=== PATIENT | female | born 1945 | race Caucasian/White ===

== ENCOUNTER 2016-11-13 19:22 | Emergency (ER) | payer MEDICARE, MEDICAID ==
[2016-11-13 19:25] VITALS: BP 157/89; PULSE 89; RESP 16; TEMP 97.9; O2SAT 100
--- NOTE | 2016-11-13 20:17 | CT ---
EXAM: CT Head Without Intravenous Contrast CLINICAL HISTORY: 71 years old, female; Injury or trauma; Fall; Initial encounter; Concussion / head injury; Consciousness not specified; Injury details: Fell while walking with her walker TECHNIQUE: Axial computed tomography images of the head/brain without intravenous contrast. All CT scans at this facility use one or more dose reduction techniques, viz.: automated exposure control; ma/kV adjustment per patient size (including targeted exams where dose is matched to indication; i.e. head); or iterative reconstruction technique. Coronal and sagittal reformatted images were created and reviewed. COMPARISON: CT - HEAD W/O CONTRAST 11/06/2013 7:58:36 PM FINDINGS: Brain: Mild atrophy. No intracranial hemorrhage. No mass. No edema. Ventricles: No hydrocephalus. Bones/joints: No acute fracture. Soft tissues: Parietal soft tissue swelling. Vasculature: Minimal atherosclerotic disease of intracranial arteries. Sinuses: Moderate mucosal thickening/air fluid level of RIGHT maxillary sinus. Scattered minimal to mild mucosal thickening of remaining sinuses. Mastoid air cells: No mastoid effusion. Orbits: Unremarkable as visualized. IMPRESSION: 1. No intracranial hemorrhage. 2. Sinus disease.
--- NOTE | 2016-11-13 20:24 | CT ---
EXAM: CT Cervical Spine Without Intravenous Contrast CLINICAL HISTORY: 71 years old, female; Injury or trauma; Fall; Initial encounter; Concussion /head injury; Additional info: Neck pain head injury TECHNIQUE: Axial computed tomography images of the cervical spine without intravenous contrast. All CT scans at this facility use one or more dose reduction techniques, viz.: automated exposure control; ma/kV adjustment per patient size (including targeted exams where dose is matched to indication; i.e. head); or iterative reconstruction technique. Coronal and sagittal reformatted images were created and reviewed. COMPARISON: No relevant prior studies available. FINDINGS: Vertebrae: No acute fracture. Straightening of cervical spine. Degenerative retrolithesis of mid cervical spine. Mild facet osteoarthrosis within cervical spine. Discs/spinal canal/neural foramina: Mild degenerative disc disease within mid cervical spine. Severe degenerative disc disease within lower cervical spine. Disc herniation within lower cervical spine, suboptimally evaluated. Mild indentation thecal sac/cord lower cervical spine. Neuroforaminal narrowing within lower cervical spine. Soft tissues: Unremarkable. Sinuses: Scattered mucosal thickening of visualized sinuses. Lung apices: Unremarkable as visualized. IMPRESSION: 1. No fracture. 2. Incidental/non-acute findings are described above.
--- NOTE | 2016-11-13 20:49 | ED PDOC ---
HPI: Trauma/Fall - HPI Time Seen by Provider: 11/13/16 19:28 Chief Complaint (Nursing): Trauma Chief Complaint (Provider): Head injury History Per: Patient History/Exam Limitations: no limitations Onset/Duration Of Symptoms: Mins Injury Occurred (Timing): Just Before Arrival Location Of Injury: Posterior: Head Associated Symptoms: LOC Additional History Per: Patient Additional Complaint(s): The patient is a 71yo female, pmhx of hypertension, diabetes, arthritis, presents to the ED for evaluation of a head injury, sustained prior to arrival. Pt reports she uses a walker to walk and she tripped and fell backwards, injuring the back of her head. She does report loss of consciousness for a few seconds but denies any nausea or vomiting. She also reports pain in the back of her head, upper midline of her back, and her left shoulder. She denies any focal weakness, or vision changes. She reports taking aspirin daily but denies use of other blood thinners. She offers no other medical complaints. Past Medical History Reviewed: Historical Data, Nursing Documentation, Vital Signs Vital Signs: Last Vital Signs Temp 97.9 F 11/13/16 19:22 Pulse 89 11/13/16 19:22 Resp 16 11/13/16 19:22 BP 157/89 H 11/13/16 19:22 Pulse Ox 100 11/13/16 19:22 - Medical History PMH: Depression, Diabetes, HTN, Hypercholesterolemia, Hyperthyroidism - Surgical History Surgical History: Cholecystectomy, - Family History Family History: States: Unknown Family Hx - Social History Current smoker - smoking cessation education provided: No Alcohol: None Drugs: Denies - Home Medications Home Medications: Ambulatory Orders Medication Instructions Recorded Amoxicillin/Clavulanate [Augmentin 1 tab PO BID #14 tab 11/08/13 875 MG-125 MG] Ondansetron ODT [Zofran ODT] 4 mg PO TID PRN #15 odt 11/08/13 Naproxen 500 mg PO Q12 #20 tab 02/25/14 Aspirin [Aspirin] 81 mg PO DAILY 10/27/14 Bupropion HCl [Bupropion] 75 mg PO DAILY 10/27/14 Cephalexin [Keflex] 500 mg PO TID 10/27/14 Divalproex Sodium [Divalproex 125 mg PO DAILY 10/27/14 Sodium] Levothyroxine [Synthroid] 75 mcg PO DAILY 10/27/14 Lisinopril [Prinivil] 20 mg PO DAILY 10/27/14 Lisinopril/Hydrochlorothiazide 20 - 25 mg PO DAILY 10/27/14 [Lisinopril-Hydrochlorothiazide 25 mg-20 mg] Meclizine HCl [Meclizine] 25 mg PO DAILY 10/27/14 Memantine HCl [Namenda] 5 mg PO DAILY 10/27/14 Metformin HCl [Metformin] 1,000 mg PO DAILY 10/27/14 Multivit,Iron,Min 5/Folic Acid 1 tab PO DAILY 10/27/14 [Strovite Forte] [id number] Ethyl Esters [Lovaza] 1 gm PO DAILY 10/27/14 Omeprazole [Prilosec] 20 mg PO DAILY 10/27/14 Oxycodone HCl/Acetaminophen 5 - 325 mg PO Q4 PRN 10/27/14 [Percocet 325 mg-5 mg] Pantoprazole Sodium [Protonix] 40 mg PO DAILY 10/27/14 Quetiapine Fumarate [Seroquel] 50 mg PO DAILY 10/27/14 Simvastatin [Simvastatin] 20 mg PO DAILY 10/27/14 Vitamin D [Vitamin D] 2,000 iu PO DAILY 10/27/14 - Allergies Allergies/Adverse Reactions: Allergies Allergy/AdvReac Type Severity Reaction Status Date / Time No Known Allergies Allergy Verified 11/06/13 19:24 Review of Systems ROS Statement: Except As Marked, All Systems Reviewed And Found Negative Gastrointestinal: Negative for: Nausea, Vomiting Musculoskeletal: Positive for: Shoulder Pain (left), Back Pain (upper midline) Neurological: Positive for: Headache, Other (loss of consciousness) Physical Exam - Reviewed Nursing Documentation Reviewed: Yes Vital Signs Reviewed: Yes - Physical Exam Appears: Positive for: In Acute Distress (mild painful) Head Exam: Positive for: NORMOCEPHALIC (abrasion upper midline parietal scalp with mild hematoma) Skin: Positive for: Warm, Dry Eye Exam: Positive for: EOMI, PERRL ENT: Negative for: Pharyngeal Erythema, Tonsillar Exudate Neck: Positive for: Painless ROM, Supple Cardiovascular/Chest: Positive for: Regular Rate, Rhythm, Chest Non Tender. Negative for: Murmur Respiratory: Positive for: Normal Breath Sounds. Negative for: Respiratory Distress Gastrointestinal/Abdominal: Positive for: Soft. Negative for: Tenderness Back: Positive for: Vertebral Tenderness (midline thoracic with no stepoff or crepitus) Extremity: Positive for: Other (LEFT shoulder: +mild ttp with painful ROM but no deformity, distally LUE is neurovascularly intact. Limited bilateral knee ROM reported as chronic) Lymphatic: Negative for: Adenopathy Neurologic/Psych: Positive for: Alert, manager reimbursement II-XII (grossly intact), Oriented (x3 ). Negative for: Motor/Sensory Deficits - ECG O2 Sat by Pulse Oximetry: 100 (RA) Pulse Ox Interpretation: Normal Medical Decision Making Medical Decision Making: Time: 1939 Impression: Head injury and back pain, r/o traumatic brain injury, fractures Plan: -- CMP -- CBC -- Tylenol 975 mg PO -- XR Left shoulder -- Dorsal (thoracic) XR -- CT C-Spine w/o contrast -- CT Head w/o contrast --Reassess Accession No. : [id number] Patient Name / ID : ELI Bowden / [id number] Exam Date : 11/13/2016 19:54:10 ( Approved ) Study Comment : Sex / Age : F / 71Y Creator : Pepe Crenshaw MD Dictator : Public Relations Professional : Bi Architect : Pepe Crenshaw MD Approver2 : Report Date : 11/13/2016 20:23:00 My Comment : [facility] Division of Radiology [address] [place] [address] Tel. no. Patient Name: RIVAS BENITEZ Pt. Address: [address] [place] [address]. Rec #: [id number] [place] [address]: Alden ESCOBAR, Willa Alva Pt CELL Order Location: [facility] : 1945 Female Age: 71 Order #: [id number] Reason for exam: neck pain head injury CT Scan CERVICAL SPINE W/O CONTRAST Exam Date: 11/13/16 This imaging exam was performed at [facility] EXAM: CT Cervical Spine Without Intravenous Contrast CLINICAL HISTORY: 71 years old, female; Injury or trauma; Fall; Initial encounter; Concussion /head injury; Additional info: Neck pain head injury TECHNIQUE: Axial computed tomography images of the cervical spine without intravenous contrast. All CT scans at this facility use one or more dose reduction techniques, viz.: automated exposure control; ma/kV adjustment per patient size (including targeted exams where dose is matched to indication; i.e. head); or iterative reconstruction technique. Coronal and sagittal reformatted images were created and reviewed. COMPARISON: No relevant prior studies available. FINDINGS: Vertebrae: No acute fracture. Straightening of cervical spine. Degenerative retrolithesis of mid cervical spine. Mild facet osteoarthrosis within cervical spine. Discs/spinal canal/neural foramina: Mild degenerative disc disease within mid cervical spine. Severe degenerative disc disease within lower cervical spine. Disc herniation within lower cervical spine, suboptimally evaluated. Mild indentation thecal sac/cord lower cervical spine. Neuroforaminal narrowing within lower cervical spine. Soft tissues: Unremarkable. Sinuses: Scattered mucosal thickening of visualized sinuses. Lung apices: Unremarkable as visualized. IMPRESSION: 1. No fracture. 2. Incidental/non-acute findings are described above. Dictated By: Pepe Crenshaw MD Dictated Date/Time: 11/13/162022 Signed By: Pepe Crenshaw MD Date Signed: 2022 Transcribed By: BRUNO Transcribe Date/Time : 11/13/162022 ACYP02/VRD Accession No. : [id number] Patient Name / ID : ELI HATHAWAY D / [id number] Exam Date : 11/13/2016 19:51:08 ( Approved ) Study Comment : Sex / Age : F / 71Y Creator : Pepe Crenshaw MD Dictator : Public Relations Professional : Bi Architect : Pepe Crenshaw MD Approver2 : Report Date : 11/13/2016 20:16:00 My Comment : [facility] Division of Radiology [address] [address] Tel. no. Patient Name: RIVAS BENITEZ Pt. Address: [address] [place] [address] Rec #: [id number] [place] [address]: Alden ESCOBAR, Willa Alva Pt CELL Order Location: [facility] : 1945 Female Age: 71 Order #: [id number] Reason for exam: head injury CT Scan HEAD W/O CONTRAST Exam Date: 11/13/16 This imaging exam was performed at [facility] EXAM: CT Head Without Intravenous Contrast CLINICAL HISTORY: 71 years old, female; Injury or trauma; Fall; Initial encounter; Concussion / head injury; Consciousness not specified; Injury details: Fell while walking with her walker TECHNIQUE: Axial computed tomography images of the head/brain without intravenous contrast. All CT scans at this facility use one or more dose reduction techniques, viz.: automated exposure control; ma/kV adjustment per patient size (including targeted exams where dose is matched to indication; i.e. head); or iterative reconstruction technique. Coronal and sagittal reformatted images were created and reviewed. COMPARISON: CT - HEAD W/O CONTRAST 11/06/2013 7:58:36 PM FINDINGS: Brain: Mild atrophy. No intracranial hemorrhage. No mass. No edema. Ventricles: No hydrocephalus. Bones/joints: No acute fracture. Soft tissues: Parietal soft tissue swelling. Vasculature: Minimal atherosclerotic disease of intracranial arteries. Sinuses: Moderate mucosal thickening/air fluid level of RIGHT maxillary sinus. Scattered minimal to mild mucosal thickening of remaining sinuses. Mastoid air cells: No mastoid effusion. Orbits: Unremarkable as visualized. IMPRESSION: 1. No intracranial hemorrhage. 2. Sinus disease. Dictated By: Pepe Crenshaw MD Dictated Date/Time: 11/13/162015 Signed By: Pepe Crenshaw MD Date Signed: 2015 Transcribed By: BRUNO Transcribe Date/Time : 11/13/162015 ACYP02/VRD LEFT shoulder: osteopenia. No fx/dislocation Thoracic spine: Osteopenia. No fx/dislocation Scribe Attestation: Documented by Kathy Simon acting as a scribe for Willa Ruano MD Provider Scribe Attestation: All medical record entries made by the Scribe were at my direction and personally dictated by me. I have reviewed the chart and agree that the record accurately reflects my personal performance of the history, physical exam, medical decision making, and the department course for this patient. I have also personally directed, reviewed, and agree with the discharge instructions and disposition. Disposition - Clinical Impression Clinical Impression: Head injury, Back contusion - Disposition Disposition: Routine/Home Disposition Time: 20:30 Condition: STABLE Additional Instructions: VISITA VELASQUEZ DOCTOR EN 24-48 HORAS A CHEQAR DE NUEVO Instructions: Fall Prevention for Older Adults (ED), Head Injury (ED) Forms: [facility] (Citizen Of [place]) Print Language: MOHAWK
--- NOTE | 2016-11-14 07:32 | RAD ---
HISTORY: pain s/p fall back COMPARISON: No prior. FINDINGS: BONES: Straightened low thoracic curvature is appreciated there is no displaced fracture or spondylolisthesis appreciated. Multilevel spondylosis appreciated moderately throughout the thoracic spine. DISC SPACES: Degenerate spondylosis at multiple levels. SOFT TISSUES: Normal. OTHER FINDINGS: Incidental note is made of surgical clips in the right upper quadrant abdomen. IMPRESSION: Straightened thoracic kyphosis. Moderate multilevel thoracic spondylosis.
--- NOTE | 2016-11-14 07:33 | RAD ---
PROCEDURE: Radiographs of the Left Shoulder HISTORY: pain s/p fall COMPARISON: No prior. FINDINGS: BONES: No fractures identified. No suspicious lytic or blastic changes appreciated. JOINTS: Degenerative osteophytic changes seen at the acromioclavicular joint which are moderate to severe. Lesser degenerate changes are seen at the inferior glenohumeral joint including osteophyte development. No subluxation or dislocation identified. SOFT TISSUES: Normal. OTHER FINDINGS: None. IMPRESSION: Degenerate change are identified as discussed above. No acute fracture or dislocation appreciable.
== END 2016-11-13 21:08 | disposition home or self-care (01) ==
LOC: H.ER 19:22
DX: S09.90XA Unspecified injury of head, initial encounter (principal); S20.229A Contusion of unspecified back wall of thorax, initial encounter; W19.XXXA Unspecified fall, initial encounter; Y92.89 Other specified places as the place of occurrence of the external cause; E05.90 Thyrotoxicosis, unspecified without thyrotoxic crisis or storm; E11.9 Type 2 diabetes mellitus without complications; F32.9 Major depressive disorder, single episode, unspecified; I10 Essential (primary) hypertension; Z79.82 Long term (current) use of aspirin; Z79.84 Long term (current) use of oral hypoglycemic drugs